=== PATIENT | female | born 1965 | race Caucasian/White ===

== ENCOUNTER 2017-07-13 15:17 | Emergency (ER) | payer BC ==
[2017-07-13] MEDS ORDERED: IOHEXOL 350 MG/ML 10 ML VIAL (for RAD DIAG) IVCONTRAST ONE (15:18)
[2017-07-13 15:23] VITALS: BP 143/74; PULSE 80; RESP 18; TEMP 98.2; O2SAT 100
[2017-07-13] MEDS ORDERED: ARMO180T PO (15:43)
[2017-07-13] MEDS ORDERED: MELA5 PO (15:43)
[2017-07-13] MEDS ORDERED: METO25TA3 PO (15:43)
[2017-07-13] MEDS ORDERED: SELE200T17 PO (15:43)
[2017-07-13] MEDS ORDERED: CHOL5000 PO (15:43)
[2017-07-13] MEDS ORDERED: ALLE60TA PO (15:43)
[2017-07-13] MEDS ORDERED: ENAL2.5T PO (15:43)
--- NOTE | 2017-07-13 15:45 | PD ---
HPI Chief Complaint: Chest Pain Time Seen by Provider: 15:34 Travel History International Travel<30 days: No Contact w/Intl Traveler<30days: No Traveled to known affect area: No History of Present Illness HPI Patient is a 51-year-old female patient of Dr. Mix's presents the emergency department for evaluation of shortness of breath. Patient states she had been worked up for palpitations and had a Holter monitor recently and then was started on metoprolol. She continues to have shortness of breath and being winded even with sitting still and talking on the phone, she states it comes on very suddenly and because she is claustrophobic it has caused significant anxiety as well. She went to Dr. Mix office today and was able to see Dr. Schumacher recommended that she come to the emergency department because she might be having bronchospasm secondary to beta blockade. Patient is not having blood clots is not on any blood thinners does not take any control pills. She has a stress test scheduled for this coming Tuesday 6 days from now. She also complains of a squeezing sensation around her entire chest. She has never had any heart problems before, no stents, no cath no stress test in the past PFSH Past Medical History Narrative Medical PVCs Past Surgical History Surgical History: No Previous Surgery Social History Tobacco Use: No Allergies-Medications Reported Meds & Prescriptions Reported Meds & Active Scripts Active Reported Melatonin 5 Mg Tab 3 Mg PO HS Metoprolol Tartrate 25 Mg Tab 25 Mg PO BID Enalapril (Enalapril Maleate) 2.5 Mg Tab 2.5 Mg PO BID [place]ap[place] Allergy (Fexofenadine HCl) 60 Mg Tab 60 Mg PO BID Selenium 200 Mcg Tab 200 Mg PO DAILY Vitamin D3 (Cholecalciferol) 5,000 Unit Cap 5,000 Units PO DAILY [place] Thyroid (Thyroid) 180 Mg Tab 210 Mg PO DAILY Review of Systems Except as stated in HPI: all other systems reviewed are Neg Physical Exam Narrative GENERAL: WD/WN in nad SKIN: Focused skin assessment warm/dry. HEAD: Atraumatic. Normocephalic. EYES: Pupils equal and round. No scleral icterus. No injection or drainage. ENT: No nasal bleeding or discharge. Mucous membranes pink and moist. NECK: Trachea midline. No JVD. CARDIOVASCULAR: Regular rate and rhythm. No murmur appreciated. RESPIRATORY: No accessory muscle use. Clear to auscultation. Breath sounds equal bilaterally. GASTROINTESTINAL: Abdomen soft, non-tender, nondistended. Hepatic and splenic margins not palpable. MUSCULOSKELETAL: No obvious deformities. No clubbing. No cyanosis. No edema. NEUROLOGICAL: Awake and alert. No obvious cranial nerve deficits. Motor grossly within normal limits. Normal speech. PSYCHIATRIC: Appropriate mood and affect; insight and judgment normal. Data Data Last Documented VS Vital Signs Date Time Temp Pulse Resp B/P (MAP) Pulse Ox O2 Delivery O2 Flow Rate FiO2 07/13/17 16:09 98 07/13/17 16:09 Room Air 07/13/17 15:23 98.2 80 18 143/74 (97) Orders Orders Electrocardiogram (07/13/17 15:35) B-Type Natriuretic Peptide (07/13/17 15:35) Ckmb (Isoenzyme) Profile (07/13/17 15:35) Complete Blood Count With Diff (07/13/17 15:35) Comprehensive Metabolic Panel (07/13/17 15:35) D-Dimer (07/13/17 15:35) Magnesium (Mg) (07/13/17 15:35) Prothrombin Time / Inr (Pt) (07/13/17 15:35) Act Partial Throm Time (Ptt) (07/13/17 15:35) Troponin I (07/13/17 15:35) Chest, Single Ap (07/13/17 15:35) Ecg Monitoring (07/13/17 15:35) Iv Access Insert/Monitor (07/13/17 15:35) Oximetry (07/13/17 15:35) Oxygen Administration (07/13/17 15:35) Ct Pulmonary Angiogram (07/13/17 ) Iohexol 350 Inj (Omnipaque 350 Inj) (07/13/17 15:18) Ed Discharge Order (07/13/17 18:34) Labs Laboratory Tests Test 07/13/17 15:45 White Blood Count 5.5 TH/MM3 Red Blood Count 4.84 MIL/MM3 Hemoglobin 14.1 GM/DL Hematocrit 41.1 % Mean Corpuscular Volume 85.0 FL Mean Corpuscular Hemoglobin 29.1 PG Mean Corpuscular Hemoglobin Concent 34.3 % Red Cell Distribution Width 13.4 % Platelet Count 222 TH/MM3 Mean Platelet Volume 6.6 FL Neutrophils (%) (Auto) 40.6 % Lymphocytes (%) (Auto) 39.3 % Monocytes (%) (Auto) 10.8 % Eosinophils (%) (Auto) 8.9 % Basophils (%) (Auto) 0.4 % Neutrophils # (Auto) 2.3 TH/MM3 Lymphocytes # (Auto) 2.2 TH/MM3 Monocytes # (Auto) 0.6 TH/MM3 Eosinophils # (Auto) 0.5 TH/MM3 Basophils # (Auto) 0.0 TH/MM3 CBC Comment DIFF FINAL Differential Comment Prothrombin Time 9.6 SEC Prothromb Time International Ratio 0.9 RATIO Activated Partial Thromboplast Time 25.0 SEC D-Dimer Quantitative (PE/DVT) 0.19 MG/L FEU Blood Urea Nitrogen 15 MG/DL Creatinine 0.66 MG/DL Random Glucose 91 MG/DL Total Protein 7.6 GM/DL Albumin 3.7 GM/DL Calcium Level 8.9 MG/DL Magnesium Level 2.1 MG/DL Alkaline Phosphatase 60 U/L Aspartate Amino Transf (AST/SGOT) 21 U/L Alanine Aminotransferase (ALT/SGPT) 43 U/L Total Bilirubin 0.2 MG/DL Sodium Level 137 MEQ/L Potassium Level 3.9 MEQ/L Chloride Level 105 MEQ/L Carbon Dioxide Level 26.2 MEQ/L Anion Gap 6 MEQ/L Estimat Glomerular Filtration Rate 94 ML/MIN Total Creatine Kinase 64 U/L Troponin I LESS THAN 0.02 NG/ML MDM Medical Decision Making Medical Screen Exam Complete: Yes Emergency Medical Condition: Yes Differential Diagnosis PE, ACS, CAD, lung disease. Anxiety is a possibility as well. Narrative Course Patient room to the emergency department, received report from Dr. Schumacher regarding this patient concerning to rule out pulmonary embolism and that the patient will be stable for outpatient workup. She does have a stress test a week. Her symptoms are fairly mild, vital signs are stable EKG reassuring, troponin d-dimer is negative however the patient still this is her concern that she might have pulmonary embolism and I think that a CT PE protocol is still indicated. Discussed risk of radiation and contrast with the patient and she would like to have a CAT scan. Think it was fairly minimal. Last 24 hours Impressions Chest X-Ray 07/13/17 8924 Signed Impressions: Service Date/Time: Thursday, July 13, 2017 15:43 - CONCLUSION: 1. No acute cardiopulmonary findings. 2. Calcific tendinitis involving the right shoulder. Ari Hart MD CT Angiography 07/13/17 0000 Signed Impressions: Service Date/Time: Thursday, July 13, 2017 17:51 - CONCLUSION: The study is negative for pulmonary embolism. Cristiano Agosto MD Discussed results with the patient appears well. She would like to go home. No definitive cause identified. I discussed with her the think that she needs to do her stress test first and if it is negative need to consider following up with Dr. Peterson or pulmonology in the future. She verbalized understanding and agreement. 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 She would like to go home. She stable for discharge. Diagnosis Primary Impression: Shortness of breath Referrals: Bianka Carlton MD Additional Instructions: Recommend close follow-up with Dr. Mix and your stress test next week as previously prescribed. If you have any concerning symptoms are always welcome to return to the emergency department Disposition: 01 DISCHARGE HOME Condition: Stable Mik Cerrato MD Jul 13, 2017 15:45
--- NOTE | 2017-07-13 16:03 | RADRPT ---
EXAM DATE/TIME: 07/13/2017 15:43 [facility] COMPARISON: No previous studies available for comparison. INDICATIONS : Chest pain. MEDICAL HISTORY : None. SURGICAL HISTORY : None. ENCOUNTER: Initial ACUITY: 1 day PAIN SCORE: 4/10 LOCATION: Bilateral chest FINDINGS: A single view of the chest demonstrates the lungs to be symmetrically aerated without evidence of mas s, infiltrate or effusion. The cardiomediastinal contours are unremarkable. Osseous structures are intact. Note is made of calcific tendinitis involving the right shoulder. CONCLUSION: 1. No acute cardiopulmonary findings. 2. Calcific tendinitis involving the right shoulder. Ari Hart MD on July 13, 2017 at 15:58 Board Certified Radiologist. This report was verified electronically.
[2017-07-13 16:07] LABS: AUTOMATED NEUTROPHIL # 2.3 TH/MM3 (1.8-7.7); BASOPHIL % 0.4 % (0.0-2.0); EOSINOPHIL # 0.5 TH/MM3 (0-0.4); EOSINOPHIL % 8.9 % (0.0-4.0); HEMATOCRIT 41.1 % (35.0-46.0); HEMOGLOBIN 14.1 GM/DL (11.6-15.3); LYMPH % 39.3 % (9.0-44.0); LYMPHOCYTE # 2.2 TH/MM3 (1.0-4.8); MEAN CORPUSCULAR HEMOGLOBIN 29.1 PG (27.0-34.0); MEAN CORPUSCULAR HGB CONC 34.3 % (32.0-36.0); MEAN PLATELET VOLUME 6.6 FL (7.0-11.0); MONO % 10.8 % (0.0-8.0); MONOCYTE # 0.6 TH/MM3 (0-0.9); NEUT % 40.6 % (16.0-70.0); PLATELET COUNT 222 TH/MM3 (150-450); RED BLOOD COUNT 4.84 MIL/MM3 (4.00-5.30); RED CELL DISTRIBUTION WIDTH 13.4 % (11.6-17.2); WHITE BLOOD COUNT 5.5 TH/MM3 (4.0-11.0)
[2017-07-13 16:09] VITALS: O2SAT 98
[2017-07-13 16:35] LABS: ALBUMIN 3.7 GM/DL (3.4-5.0); ALKALINE PHOSPHATASE 60 U/L (45-117); ALT (GPT) 43 U/L (10-53); AST (GOT) 21 U/L (15-37); BICARBONATE 26.2 MEQ/L (21.0-32.0); BLOOD UREA NITROGEN 15 MG/DL (7-18); CALCIUM 8.9 MG/DL (8.5-10.1); CHLORIDE 105 MEQ/L (98-107); CREATININE 0.66 MG/DL (0.50-1.00); GLOMERULAR FILTRATION RATE 94 ML/MIN (>89); GLUCOSE,RANDOM 91 MG/DL (74-106); MAGNESIUM 2.1 MG/DL (1.5-2.5); SODIUM (NA) 137 MEQ/L (136-145); TOTAL BILIRUBIN ADULT 0.2 MG/DL (0.2-1.0); TOTAL PROTEIN 7.6 GM/DL (6.4-8.2); TROPONIN I LESS THAN 0.02 NG/ML (0.02-0.05)
[2017-07-13 16:39] LABS: INTERNATIONAL NORMALIZED RATIO 0.9 RATIO; PROTHROMBIN TIME - PATIENT 9.6 SEC (9.8-11.6)
[2017-07-13 16:49] LABS: D-DIMER 0.19 MG/L FEU (0.00-0.50)
--- NOTE | 2017-07-13 18:29 | RADRPT ---
EXAM DATE/TIME: 07/13/2017 17:51 [facility] COMPARISON: No previous studies available for comparison. INDICATIONS : Shortness of breath for a week IV CONTRAST: 50 cc Omnipaque 350 (iohexol) IV RADIATION DOSE: 10.08 CTDIvol (mGy) MEDICAL HISTORY : None SURGICAL HISTORY : None. ENCOUNTER: Initial ACUITY: 1 week PAIN SCALE: 8/10 LOCATION: chest TECHNIQUE: Volumetric scanning of the chest was performed using a pulmonary embolism protocol MIP images were re constructed. Using automated exposure control and adjustment of the mA and/or kV according to patien t size, radiation dose was kept as low as reasonably achievable to obtain optimal diagnostic quality images. DICOM format image data is available electronically for review and comparison. Follow-up recommendations for detected pulmonary nodules are based at a minimum on nodule size and pa tient risk factors according to Fleischner Society Guidelines. FINDINGS: PULMONARY ARTERIES: No filling defects are seen in the pulmonary arteries through the segmental level. LUNGS: There is no consolidation or pneumothorax . No concerning pulmonary nodule is visualized. PLEURAE: There is no pleural thickening or pleural effusion. MEDIASTINUM: There is good visualization of the great vessels of the middle mediastinum. No evidence of mediastin al or hilar adenopathy/mass. CONCLUSION: The study is negative for pulmonary embolism. Cristiano Agosto MD on July 13, 2017 at 18:27 Board Certified Radiologist. This report was verified electronically.
--- NOTE | 2017-07-14 21:37 | EKG ---
Date Performed: 07/13/2017 Time Performed: 15:53:09 PTAGE: 51 years EKG: Sinus rhythm NORMAL ECG NO PREVIOUS TRACING DOCTOR: Luis Padilla Interpretating Date/Time 07/14/2017 21:37:13
== END 2017-07-13 18:47 | disposition home or self-care (01) ==
LOC: NEPE 15:17
DX: R06.02 Shortness of breath (principal)
CPT/HCPCS: 71045; 71275; 80053; 82550; 83735; 83880; 84484; 85025; 85379; 85610; 85730; 93005; 99285; Q9967